=== PATIENT | male | born 1985 | race Two or more races ===

== ENCOUNTER 2019-03-15 07:48 | Emergency (ER) | payer OTHER ==
--- NOTE | 2019-03-15 08:40 | ER Document Report ---
HPI - HPI Time Seen by Provider: 03/15/19 08:40 Pain Level: 5 Notes: 33-year-old male presents to the ED for complaints of lower back pain the last 2 days, states pain was gradual, cannot remember significant episode that perpetuated his back pain, patient does work for the post service and states that his pain does become progressively worse when he works. Patient reports he did have herniated disc L4-L5 when he was in [facility] in 2014, he did have an MRI at that time, did follow-up with chiropractor, was never seen by client technical specialist. Denies fevers, chills, chest pain,palpitations, shortness of breath, dyspnea, nausea, vomiting, diarrhea, abdominal pain, hematuria,blurred vision, double vision, loss of vision, speech changes, LH, dizziness, syncope, headaches, neck pain, weakness, bowel or bladder dysfunction, saddle anesthesia, numbness or tingling in bilateral upper or lower extremities equally, muscle paralysis, weakness in bilateral upper or lower extremities equally or rash. Past Medical History - General Information source: Patient - Social History Smoking Status: Current Every Day Smoker Family History: Reviewed & Not Pertinent Patient has suicidal ideation: No Patient has homicidal ideation: No - Past Medical History Cardiac Medical History: Denies: Hx Coronary Artery Disease, Hx Heart Attack, Hx Hypertension Pulmonary Medical History: Denies: Hx Asthma, Hx Bronchitis, Hx COPD, Hx Pneumonia Neurological Medical History: Denies: Hx Cerebrovascular Accident, Hx Seizures Renal/ Medical History: Denies: Hx Peritoneal Dialysis Musculoskeletal Medical History: Denies Hx Arthritis Past Surgical History: Reports: Hx Orthopedic Surgery - Immunizations Hx Diphtheria, Pertussis, Tetanus Vaccination: No Vertical Provider Document - CONSTITUTIONAL Agree With Documented VS: Yes Notes: REVIEW OF SYSTEMS: CONSTITUTIONAL : Denies fever, chills, or sweats. Denies recent illness. EENT: Denies eye, ear, throat, or mouth pain or symptoms. Denies nasal or sinus congestion or discharge. Denies throat, tongue, or mouth swelling or difficulty swallowing. CARDIOVASCULAR: Denies chest pain. Denies palpitations or racing or irregular heart beat. Denies ankle edema. RESPIRATORY: Denies cough, cold, or chest congestion. Denies shortness of breath, difficulty breathing, or wheezing. GASTROINTESTINAL: Denies abdominal pain or distention. Denies nausea, vomiting, or diarrhea. Denies blood in vomitus, stools, or per rectum. Denies black, tarry stools. Denies constipation. GENITOURINARY: Denies difficulty urinating, painful urination, burning, frequency, blood in urine, or discharge. MUSCULOSKELETAL: Denies back or neck pain or stiffness. Denies joint pain or swelling. SKIN: Denies rash, lesions or sores. HEMATOLOGIC : Denies easy bruising or bleeding. LYMPHATIC: Denies swollen, enlarged glands. NEUROLOGICAL: Denies confusion or altered mental status. Denies passing out or loss of consciousness. Denies dizziness or lightheadedness. Denies headache. Denies weakness or paralysis or loss of use of either side. Denies problems with gait or speech. Denies sensory loss, numbness, or tingling. Denies seiz ures. PSYCHIATRIC: Denies anxiety or stress. Denies depression, suicidal ideation, or homicidal ideation. ALL OTHER SYSTEMS REVIEWED AND NEGATIVE. Dictation was performed using [employer] voice recognition software PHYSICAL EXAMINATION: GENERAL: Well-appearing, well-nourished and in no acute distress. HEAD: Atraumatic, normocephalic. EYES: Pupils equal round and reactive to light, extraocular movements intact, sclera anicteric, conjunctiva are normal. ENT: Nares patent, oropharynx clear without exudates. Moist mucous membranes. NECK: Normal range of motion, supple without lymphadenopathy LUNGS: Breath sounds clear to auscultation bilaterally and equal. No wheezes rales or rhonchi. HEART: Regular rate and rhythm without murmurs ABDOMEN: Soft, nontender, nondistended abdomen. No guarding, no rebound. No masses appreciated. Musculoskeletal: Normal range of motion, no pitting or edema. No cyanosis Pain with flexion and extension at 30 degrees, positive straight leg test Normal hip rotation. DTR +2 in BLE equally. Strength 5 out of 5 both distally and proximally to bilateral lower extremities normal motor and sensory function in BLE equally. Distal pulses + 2 BLE equally. Noted paraspinal tenderness near L2 and L$. Noted spinal tenderness L2-L4. No CVA tenderness bilaterally. Femoral pulses + 2 bilaterally and equally. No abrasions, scars, lacerations, ecchymosis of any recent trauma. normal gait. NEUROLOGICAL: Cranial nerves grossly intact. Normal speech, normal gait. Normal sensory, motor exams PSYCH: Normal mood, normal affect. SKIN: Warm, Dry, normal turgor, no rashes or lesions noted. - INFECTION CONTROL TRAVEL OUTSIDE OF THE [place] IN LAST 30 DAYS: No Course - Re-evaluation Re-evalutation: 03/15/19 10:33 33-year-old male presents to the ED with complaints of having back pain today, states he just noticed it, no trauma. For L5 herniated disc back in 2014, had seen chiropractor which did help, this was evaluated at [facility] and [facility]. 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 X-ray lumbar spine shows degenerative joint disease, no acute fracture dislocation, discussed with patient that he does need to follow-up with client technical specialist outpatient and primary care provider, patient was given Toradol 60 mg IM with some relief. Vitals have remained stable afebrile in no distress. Patient has full strength in bilateral lower extremities equally, full motor and sensory function of BLE. We will send patient home on muscle relaxers, to take [place] when having severe pain, do not drive, drink or operate heavy machinery while taking medication as this can cause cognitive impairment or sedation. Advised to follow-up with client technical specialist 24 to 48 hours. After performing a Medical Screening Examination, I estimate there is LOW risk for EXPANDING OR RUPTURED ABDOMINAL AORTIC ANEURYSM, CAUDA EQUINA SYNDROME, EPIDURAL MASS ABSCESS OR LESION(S), OSTEOMYELITIS,PERSONAL HISTORY OF CANCER, IMMUNOSUPPERSSSION, HISTORY OF IV DRUG USE, FRACTURE, CORD COMPERSSION, CANCER, RETROPERITONEAL BLEED, SPINAL EPIDURAL HEMATOMA, or HERNIATED DISK CAUSING SEVERE SPINAL STENOSIS, thus I consider the discharge disposition reasonable. I have reevaluated this patient multiple times and no significant life threatening changes are noted. The patient and I have discussed the diagnosis and risks, and we agree with discharging home and close follow-up. We also discussed returning to the Emergency Department immediately if new or worsening symptoms occur with the understanding that symptoms and presentations can change. We have discussed the symptoms which are most concerning (e.g., saddle anesthesia, urinary or bowel incontinence or retention, changing or worsening pain) that necessitate immediate return. - Vital Signs Vital signs: Temp Pulse Resp BP Pulse Ox 97.8 F 84 18 129/75 H 99 03/15/19 07:56 03/15/19 07:56 03/15/19 07:56 03/15/19 07:56 03/15/19 07:56 Discharge - Discharge Clinical Impression: Lumbar back pain Condition: Stable Disposition: HOME, SELF-CARE Instructions: Low Back Pain ([facility]), Muscle Strain ([facility]), Oral Narcotic Medication ([facility]), Pain Medication Injection ([facility]), Warm Packs ([facility]) Additional Instructions: Muscle Relaxers Muscle relaxing medications are usually prescribed for acute muscle spasm or injury to the neck and back. They are often combined with antiinflammatory pain medication for increased relief. You may stop the muscle relaxer when the pain and stiffness have improved. Start the medication again if spasms recur. Muscle relaxers may cause drowsiness, especially with the first dose. Do not operate machinery or drive while under the effects of the medication. Most muscle relaxers last up to 24 hours. Do not combine the medication with alcohol. Muscle Strain You have strained a muscle -- torn the fibers within the muscle. This often occurs with strenuous exertion, or during an injury that suddenly stretches the muscle. The seriousness of a strain varies. Some strains heal within days, others cause problems for months. X-rays cannot show a muscle strain. X-rays are taken only if symptoms suggest that a fracture could be present. The usual treatment of a muscle strain is rest and ice packs. Sometimes, a sling, splint, or crutches may be necessary to rest the muscle. The muscle can be used again once pain subsides. Severe strains require a special exercise and stretching program to prevent permanent stiffness and disability. Your doctor will advise you if this will be necessary. Call the doctor immediately if pain or swelling becomes severe, or if numbness or discoloration develop. Toradol Injection You have been given an injection of ketorolac tromethamine (Toradol). This is an excellent, safe drug for pain control. It also has potent antiinflammatory action. You should have significant pain relief within about one hour. Toradol is not addicting and is non-sedating. It does not interfere with driving or work. Call or return if you develop itching, hives, shortness of breath, or rash. Back Injury with Fracture You have a fracture of a vertebra in your back. The fracture does not appear to require an operation, and there's no evidence of danger to your spinal cord. You should be able to recover at home. The transverse process sticks out to the side of the vertebra. Muscles attach to it, allowing you to tip your back from side to side. The fracture is usually caused by a blow to the back. Although painful, the fracture is not serious. The risk of complications is very low. You can expect to recover fully within a few weeks. The treatment of this fracture is essentially the same as for a severe back strain. Muscle relaxers or antiinflammatory medication may be prescribed. You should rest in bed for a few days until the pain eases. Any position that is comfortable is acceptable. Sometimes it helps to put a pillow under your knees if you're lying flat, or between the knees if you're lying on your side. Ice pack the painful area at first. After you are active again, you can apply gentle heat intermittently to relax sore muscles. You can continue with ice packs if you find them helpful in reducing muscle pain. As you improve, begin light activity. A recheck will determine when you are ready to resume work or sports. Call the doctor or return at once if you develop radiating pains, muscle weakness, blood in the urine, problems with the bladder or bowels, or numbness. Take muscle relaxers and anti-inflammatories as directed, take oral narcotic as needed for severe pain, do not drive, drink or operate heavy machinery while taking medication as it can cause sedation and impairment of cognitive function. Follow-up with client technical specialist within 1 week, follow-up with primary care provider within the next 24 to 48 hours, apply heat 20 minutes on 20 minutes off several times a day, advised to do back stretches, you may need further imaging with your primary client technical specialist. Return immediately for any new or worsening symptoms. Follow up with primary care provider, call tomorrow to make followup appointment. Prescriptions: RX: Meloxicam [Mobic] 15 mg PO DAILY #15 tablet Methocarbamol [Robaxin 500 mg Tablet] 500 mg PO QID PRN #30 tablet PRN Reason: Forms: Return to Work Referrals: SHERLEY MAR MD [ACTIVE STAFF] - Follow up as needed ELVA CHIANG MD [ACTIVE STAFF] - Follow up in 3-5 days
[2019-03-15] MEDS ORDERED: KETOROLAC TROMETHAMINE 60 MG/2 ML SDV IM ONE (09:15)
--- NOTE | 2019-03-15 10:15 | RADIOLOGY REPORT (SQ) ---
EXAM DESCRIPTION: L SPINE WHOLE COMPLETED DATE/TIME: 03/15/2019 9:51 am REASON FOR STUDY: lumbar pain, spinal tenderness, no trauma COMPARISON: None. NUMBER OF VIEWS: Five views including obliques. TECHNIQUE: AP, lateral, oblique, and sacral radiographic images acquired of the lumbar spine. LIMITATIONS: None. FINDINGS: MINERALIZATION: Normal. SEGMENTATION: Normal. No transitional anatomy. ALIGNMENT: Normal. VERTEBRAE: Maintained height. No fracture or worrisome bone lesion. DISCS: Mild disc space narrowing L5-S1. POSTERIOR ELEMENTS: Bilateral pars defects L5-S1. HARDWARE: None in the spine. PARASPINAL SOFT TISSUES: Normal. PELVIS: Intact as visualized. No fractures or worrisome bone lesions. SI joints intact. OTHER: No other significant finding. IMPRESSION: Bilateral pars defects L5-S1. Study otherwise unremarkable. Mild disc space narrowing L5-S1. TECHNICAL DOCUMENTATION: JOB ID: [id number] [employer]- All Rights Reserved Reading location - IP/workstation name: [email or web address]
[2019-03-15] MEDS ORDERED: HYDROCODONE/ACETAMINOPHEN 5-325 MG (6 TAB/ER DISP) PO PRN (10:27)
[2019-03-15 10:43] VITALS: BP 118/70
== END 2019-03-15 10:42 | disposition home or self-care (01) ==
LOC: ER 07:48
DX: M54.5 Low back pain (principal); F17.200 Nicotine dependence, unspecified, uncomplicated
CPT/HCPCS: 99283; 96372; 72110; J1885

== ENCOUNTER 2020-09-26 08:51 | Emergency (ER) | payer OTHER, MEDICAID ==
[2020-09-26 08:59] VITALS: BP 149/88
[2020-09-26 10:17] LABS: ABSOLUTE BASOPHILS # (AUTO) 0.1 10^3/uL (0.0-0.2); ABSOLUTE EOSINOPHILS # (AUTO) 0.1 10^3/uL (0.0-0.6); ABSOLUTE MONOCYTES (AUTO) 0.5 10^3/uL (0.1-1.4); ABSOLUTE NEUT (AUTO) 8.2 10^3/uL (1.7-8.2); BASOPHILS % (AUTO) 0.5 % (0-2); EOSINOPHILS % (AUTO) 0.7 % (0-6); HEMATOCRIT 46.2 % (37.9-51.0); LYMPHOCYTES % (AUTO) 10.1 % (13-45); MEAN CORPUSCULAR HEMOGLOBIN 32.7 pg (27.0-33.4); MEAN CORPUSCULAR HGB CONC 34.7 g/dL (32.0-36.0); MEAN CORPUSCULAR VOLUME 94 fl (80-97); MONOCYTES % (AUTO) 4.8 % (3-13); PLATELET COUNT 276 10^3/uL (150-450); RED CELL DISTRIBUTION WIDTH 13.6 % (11.5-14.0); SEGMENTED NEUTROPHILS % (AUTO) 83.9 % (42-78); TOTAL CELLS COUNTED % (AUTO) 100 %; WHITE BLOOD COUNT 9.8 10^3/uL (4.0-10.5)
[2020-09-26 10:33] LABS: APPEARANCE,URINE CLEAR; BILIRUBIN,URINE NEGATIVE (NEGATIVE); COLOR,URINE YELLOW; GLUCOSE, URINE NEGATIVE (NEGATIVE); KETONES,URINE TRACE mg/dL (NEGATIVE); LEUKOCYTE ESTERASE,URINE NEGATIVE (NEGATIVE); NITRITE,URINE NEGATIVE (NEGATIVE); PROTEIN,URINE NEGATIVE (NEGATIVE); URINE SPECIFIC GRAVITY 1.018; UROBILINOGEN,URINE NEGATIVE mg/dL (<2.0)
[2020-09-26 10:50] LABS: CREATINE KINASE MB 0.25 ng/mL (<4.55)
[2020-09-26 10:53] LABS: TROPONIN I < 0.012 ng/mL
[2020-09-26 11:08] LABS: ALBUMIN 3.4 g/dL (3.5-5.0); ALKALINE PHOSPHATASE 43 U/L (38-126); ANION GAP 8 (5-19); ASPARTATE AMINO TRANSFERASE 19 U/L (17-59); BILIRUBIN,TOTAL 0.4 mg/dL (0.2-1.3); BLOOD UREA NITROGEN 8 mg/dL (7-20); CARBON DIOXIDE 20 mmol/L (22-30); CHLORIDE 113 mmol/L (98-107); GLUCOSE 94 mg/dL (75-110); POTASSIUM 3.5 mmol/L (3.6-5.0); TOTAL PROTEIN 6.2 g/dL (6.3-8.2)
--- NOTE | 2020-09-26 11:28 | ER Document Report ---
ED General - General Chief Complaint: Abdominal Pain Stated Complaint: UPPER ABDOMINAL PAIN Time Seen by Provider: 09/26/20 11:17 TRAVEL OUTSIDE OF THE [place] IN LAST 30 DAYS: No - HPI Notes: 34-year-old male presents to the emergency room today for complaints of right upper quadrant abdominal pain that started at 415 this morning as well as having chest pain, shortness of breath with nausea and vomiting. Patient states that the chest pain has been constant, states that it substernal, no radiation of pain. Has not tried any [id number] medications. Patient states that he did have a bowel movement this morning at 430, no melena and it was normal no diarrhea. He did not feel any relief after that. Patient states he was a former smoker, is not actively smoking. Patient states he sparingly drinks alcohol denies any prior history of any heart issues, states he does have asthma as a child. Denies any rashes, fevers, chills. Patient states the last time he ate anything was at 5 PM yesterday and he ate chicken [place], denies having any pain after he ate his dinner last night. Denies fevers, chills, palpitations, dyspnea, diarrhea, hematuria,blurred vision, double vision, loss of vision, speech changes, LH, dizziness, syncope, headaches, wheezing, ST, URI, neck pain, weakness, bowel or bladder dysfunction, saddle anesthesia, numbness or tingling in bilateral upper or lower extremities equally, muscle paralysis, weakness in bilateral upper or lower extremities equally or rash. Denies IV drug use. - Related Data Allergies/Adverse Reactions: No Known Allergies Allergy (Verified 09/26/20 09:45) Past Medical History - General Information source: Patient - Social History Smoking Status: Former Smoker Family History: Reviewed & Not Pertinent - Past Medical History Cardiac Medical History: Denies: Hx Coronary Artery Disease, Hx Heart Attack, Hx Hypertension Pulmonary Medical History: Reports: Hx Asthma - Hx of Denies: Hx Bronchitis, Hx COPD, Hx Pneumonia Neurological Medical History: Denies: Hx Cerebrovascular Accident, Hx Seizures Renal/ Medical History: Denies: Hx Peritoneal Dialysis Musculoskeletal Medical History: Denies Hx Arthritis Past Surgical History: Reports: Hx Orthopedic Surgery - Immunizations Hx Diphtheria, Pertussis, Tetanus Vaccination: No Review of Systems - Review of Systems Constitutional: No symptoms reported EENT: No symptoms reported Cardiovascular: See HPI Respiratory: No symptoms reported Gastrointestinal: See HPI Genitourinary: No symptoms reported Male Genitourinary: No symptoms reported Musculoskeletal: No symptoms reported Skin: No symptoms reported Hematologic/Lymphatic: No symptoms reported Neurological/Psychological: No symptoms reported Physical Exam - Vital signs Vitals: Temp Pulse Resp BP Pulse Ox 97.1 F 72 20 149/88 H 100 09/26/20 08:57 09/26/20 08:57 09/26/20 08:57 09/26/20 08:57 09/26/20 08:57 - Notes Notes: MEDICATIONS: I agree with the patient medications as charted by the RN. ALLERGIES: I agree with the allergies as charted by the RN. PAST MEDICAL HISTORY/PAST SURGICAL HISTORY: Reviewed and agree as charted by RN. SOCIAL HISTORY: Reviewed and agree as charted by RN. FAMILY HISTORY: No significant familial comorbid conditions directly related to patient complaint EXAM: Reviewed vital signs as charted by RN. PHYSICAL EXAMINATION:reviewed vital signs by RN GENERAL: Well-appearing, well-nourished and in no acute distress. HEAD: Atraumatic, normocephalic. EYES: Pupils equal round and reactive to light, extraocular movements intact, sclera anicteric, conjunctiva are normal. ENT: Nares patent, oropharynx clear without exudates. Moist mucous membranes. NECK: Normal range of motion, supple without lymphadenopathy LUNGS: Breath sounds clear to auscultation bilaterally and equal. No wheezes rales or rhonchi. HEART: Regular rate and rhythm without murmurs. Unable to reproduce chest pain that brought patient to the emergency room a palpation ABDOMEN: Soft, right upper quadrant, epigastric abdominal pain on palpation, nondistended abdomen. No guarding, no rebound. No masses appreciated. No CVA tenderness appreciated bilaterally Musculoskeletal: Normal range of motion, no pitting or edema. No cyanosis. NEUROLOGICAL: Cranial nerves grossly intact. Normal speech, normal gait. Normal sensory, motor exams PSYCH: Normal mood, normal affect. SKIN: Warm, Dry, normal turgor, no rashes or lesions noted. Course - Re-evaluation Re-evalutation: 09/26/20 15:44 Afebrile vital stable no distress. Nurses notes reviewed. CBC negative for leukocytosis or anemia. CMP negative for hepatic or renal dysfunction, no electrolyte disturbances. Lipase for some reason was canceled not by this person where the nurses taking care of the patient, unsure why lipase did not result. Troponin less than 0.012. Since patient's chest pain started at 0415 this morning, he will need serial troponins. Right upper quadrant ultrasound was inconclusive due to body habitus, he will require further imaging.1530-when I went into discussed with patient results and that he will need further imaging as well as another troponin. Patient became very upset and stated that he wanted to leave and he did not want to stay in the emergency room any longer. Patient stated that he is very irritated. Stressed patient.troponins take time to leak into the bloodstream that he will need serial troponins as well as CT scan of abdomen pelvis with IV and oral contrast and that his lipase will need to be redrawn because it was canceled by somebody other than meand the nurses taking care of him. Patient stated he did not want to stay. After performing a Medical Screening Examination, I spoke with the patient at length in regards to leaving the hospital against medical advice. I do not believe the patient should leave but the patient is alert oriented x4, understands the risks and benefits of staying and leaving including disability and . Pt understands that he can return at any time for further care and is more than welcome to do so. Pt verbalizes this understanding. 09/26/20 15:47 - Vital Signs Vital signs: Temp Pulse Resp BP Pulse Ox 97.1 F 72 20 149/88 H 100 09/26/20 08:57 09/26/20 08:57 09/26/20 08:57 09/26/20 08:57 09/26/20 08:57 - Laboratory Result Diagrams: 09/26/20 09:43 09/26/20 09:43 Laboratory results interpreted by me: 09/26/20 09/26/20 09/26/20 09:43 09:43 10:07 Lymph % (Auto) 10.1 L Seg Neutrophils % 83.9 H Potassium 3.5 L Chloride 113 H Carbon Dioxide 20 L Calcium 8.0 L Total Protein 6.2 L Albumin 3.4 L Urine Ketones TRACE H - EKG Interpretation by Me EKG shows normal: Sinus rhythm Rate: Bradycardia Additional EKG results interpreted by me: 09/26/20 15:47 EKG heart rate 56, sinus bradycardia, P axis 1, QRS 26, T [place] 1, was interpreted by supervising ER physician. No STEMI, no ST segment elevations Discharge - Discharge Clinical Impression: RUQ abdominal pain, Chest pain Condition: Stable Disposition: AGAINST MEDICAL ADVICE Instructions: Abdominal Pain ([facility]) Referrals: OLIVER MARSHALL MD [ACTIVE PROVISIONAL STAFF] - Follow up as needed ELENA REGALADO MD [ACTIVE STAFF] - Follow up as needed TYRON WALTON MD [ACTIVE STAFF] - Follow up as needed
[2020-09-26] MEDS ORDERED: LIDOCAINE 2% VISCOUS SOLN 15 ML UDCUP PO ONE (12:34)
[2020-09-26] MEDS ORDERED: NORMAL SALINE 1000 ML 1,000 ML IV ONE (12:34)
[2020-09-26] MEDS ORDERED: METOCLOPRAMIDE HCL ORAL SOLN 10 MG/10 ML UDCUP PO ONE (12:34)
[2020-09-26] MEDS ORDERED: MAG HYDROX/AL HYDROX/SIMETH SUSP 30 ML UDCUP PO ONE (12:34)
--- NOTE | 2020-09-26 14:07 | RADIOLOGY REPORT (SQ) ---
EXAM DESCRIPTION: CHEST SINGLE VIEW IMAGES COMPLETED DATE/TIME: 09/26/2020 1:57 pm REASON FOR STUDY: chest pain/sob COMPARISON: None. EXAM PARAMETERS: NUMBER OF VIEWS: One view. TECHNIQUE: Single frontal radiographic view of the chest acquired. RADIATION DOSE: NA LIMITATIONS: None. FINDINGS: LUNGS AND PLEURA: No opacities, masses or pneumothorax. No pleural effusion. MEDIASTINUM AND HILAR STRUCTURES: No masses. Contour normal. HEART AND VASCULAR STRUCTURES: Heart normal in size. Normal vasculature. BONES: No acute findings. HARDWARE: None in the chest. OTHER: No other significant finding. IMPRESSION: NO ACUTE RADIOGRAPHIC FINDING IN THE CHEST. TECHNICAL DOCUMENTATION: JOB ID: [id number] 2010 [employer]- All Rights Reserved Reading location - IP/workstation name: [email or web address]
--- NOTE | 2020-09-26 15:30 | RADIOLOGY REPORT (SQ) ---
EXAM DESCRIPTION: U/S ABDOMEN LIMITED W/O DOP IMAGES COMPLETED DATE/TIME: 09/26/2020 3:18 pm REASON FOR STUDY: RUQ pain, N/V COMPARISON: 05/31/2015 TECHNIQUE: Dynamic and static grayscale images acquired of the abdomen and recorded on PACS. Randyo lizzy selected color Doppler and spectral images recorded. LIMITATIONS: Body habitus FINDINGS: PANCREAS: Visualized portions the pancreas are normal in appearance. LIVER: Left lobe of the liver is in Ack with assessed. Right lobe is unremarkable. LIVER VASCULATURE: Normal directional flow of the main portal vein and hepatic veins. GALLBLADDER: No stones. Normal wall thickness. No pericholecystic fluid. ULTRASOUND-DETECTED BULL'S SIGN: Negative. INTRAHEPATIC DUCTS AND COMMON DUCT: CBD and intrahepatic ducts normal caliber. No filling defects. AORTA: No aneurysm. RIGHT KIDNEY: Limited visualization. PERITONEAL AND RIGHT PLEURAL SPACE: No ascites or effusions. OTHER: No other significant findings. IMPRESSION: Very limited study due to body habitus. No acute findings. TECHNICAL DOCUMENTATION: JOB ID: [id number] 2010 [employer]- All Rights Reserved Reading location - IP/workstation name: [email or web address]
--- NOTE | 2020-09-26 18:09 | EKG REPORT ---
SEVERITY:- OTHERWISE NORMAL ECG - SINUS ARRHYTHMIA, RATE 45-68 : Confirmed by: Marvin Gonzalez MD 26-Sep-2020 18:08:42
== END 2020-09-26 15:43 | disposition left against medical advice (07) ==
LOC: ER 08:51
DX: R10.10 Upper abdominal pain, unspecified (principal); R07.9 Chest pain, unspecified; R06.02 Shortness of breath; R11.2 Nausea with vomiting, unspecified
CPT/HCPCS: 93005; 99285; 96360; 36415; 82553; 85025; 80053; 81001; 84484; 71045; 76705; 93010; J3490; J7030